=== PATIENT | female | born 1970 | race Caucasian/White ===

== ENCOUNTER 2021-01-06 18:21 | Emergency (ER) | payer OTHER ==
[~2021-01-06] VITALS: Ht 170.2 cm; Wt 90.7 kg
--- NOTE | ~2021-01-06 | EMS ---
[address] [address] EMS Patient Care Report Name: TEJA MACKAY Room #: DEP CARLOS Maya#: [id number] Admission: 01/06/21 Attend Phys: Discharge: 01/06/21 Date of : 70 Report #: [id number] THIS REPORT FOR: //name// Report Transmitted: 01/07/2021 14:38 EMS Care Summary [place], [place]/[facility] Incident [id number] @ 01/06/2021 17:36 Incident Location [address] [place] [address] Patient TEJA MACKAY Female, 50 Years 1970 Patient Address [address] [place], [place] [id number] Patient History Rheumatoid Arthritis,Back Pain (Chronic), Patient Allergies No known allergies, Patient Medications Acetaminophen, Tizanidine, Methocarbamol, Ibuprofen, Omeprazole, Chief Complaint BACK PAIN Disposition Transported No Lights/[place] Dispatch Reason Back Pain (Non-Traumatic) Transported To [facility] Narrative PT FOUND STANDING UP A/O X3 C/O SUDDEN ONSET OF LOWER BACK PAIN. PT STATES THIS HAS BEEN A PROBLEM FOR THE LAST 3 WEEKS. PT'S PAIN LOWERED TO A 3 UPON ARRIVAL AT [facility]. [address] [address] EMS Patient Care Report Name: TEJA MACKAY Room #: DEP ER Francesco#: [id number] Admission: 01/06/21 Attend Phys: Discharge: 01/06/21 Date of : 70 Report #: [id number] NO OTHER CHANGES ENROUTE. Initial Vitals @18:04P: 79,R: 18,BP: 132/78,Pain: 4/10,GCS: 15,CO: 1,SpO2: 100,Revised Trauma: 12, @18:01P: 111,R: 24,BP: 140/84,Pain: 8/10,GCS: 15,Revised Trauma: 12, Assessments @17:52MENTAL:No Abnormalities,SKIN:No Abnormalities,HEENT:Head/Face: No Abnormalities,Eyes: No Abnormalities,Neck/Airway: No Abnormalities,LUNG SOUNDS:General: No Abnormalities,Left Upper: No Abnormalities,Right Upper: No Abnormalities,Left Lower: No Abnormalities,Right Lower: No Abnormalities,ABDOMEN:General: No Abnormalities,Left Upper: No Abnormalities,Right Upper: No Abnormalities,Left Lower: No Abnormalities,Right Lower: No Abnormalities,PELVIS//GI:No Abnormalities,EXTREMITIES:Left Arm: No Abnormalities,Right Arm: No Abnormalities,Left Leg: No Abnormalities,Right Leg: No Abnormalities,PULSE:NEURO:No Abnormalities, Impression Back Pain Procedures @17:52 ALS Assessment Response: UnchangedSucceeded Timeline 17:33,Call Received 17:33,Dispatch Notified 17:36,Dispatched 17:37,En Route 17:51,On Scene 17:52,At Patient 17:52,ALS Assessment,Response: UnchangedSucceeded, 18:01,BP: 140/84 M,PULSE: 111,RR: 24 R,SPO2: Ox,ETCO2: ,BG: ,PAIN: 8,GCS: 15, 18:04,BP: 132/78 M,PULSE: 79,RR: 18 R,SPO2: 100 Ox,ETCO2: ,BG: ,PAIN: 4,GCS: 15, 18:05,Depart Scene 18:14,At Destination 18:31,Call Closed Disclaimer v1.1 Copyright 2020 [employer] This EMS Care Summary contains data elements from the applicable legal record (which may be displayed differently). It is designed to provide pertinent information for the following purposes: continuity of care, clinical quality, and state data reporting. The complete legal record is available to ED staff [address] [address] EMS Patient Care Report Name: TEJA MACKAY Room #: DEP Francesco#: [id number] Admission: 01/06/21 Attend Phys: Discharge: 01/06/21 Date of : 70 Report #: [id number] and administrators of the receiving hospital in [employer]'s Patient Tracker. All data is provided "as is."
[2021-01-06] MEDS ORDERED: MOBIC7.5 MG PO (19:01)
[2021-01-06] MEDS ORDERED: MEDROLDOSEPACK PO (19:01)
[2021-01-06 19:22] VITALS: BP 123/81
== END 2021-01-06 19:50 | disposition home or self-care (01) ==
LOC: EDBD 18:21 → ER 18:21
DX: M54.50 Low back pain, unspecified (principal); F31.9 Bipolar disorder, unspecified; Z98.890 Other specified postprocedural states